=== PATIENT | female | born 1975 | race Two or more races ===

== ENCOUNTER 2016-07-22 14:40 | Emergency (ER) | payer MEDICAID ==
[~2016-07-22] VITALS: Ht 167.6 cm; Wt 69.3 kg
[~2016-07-22 14:40] MED LIST: IBUP800T PO
[2016-07-22 16:32] LABS: PATH.CAST-FLAG NOT PRESENT; SPERM-FLAG NOT PRESENT; SRC-FLAG NOT PRESENT; XTAL-FLAG NOT PRESENT; YLC-FLAG NOT PRESENT
[2016-07-22 17:22] VITALS: BP 112/64
== END 2016-07-22 17:45 | disposition home or self-care (01) ==
LOC: ED 16:46
DX: O03.4 Incomplete spontaneous abortion without complication (principal)
CPT/HCPCS: 36415; 76801; 81001; 84702; 87086; 87210; 87491; 87591; 87808; 99285

== ENCOUNTER 2016-07-26 09:32 | Emergency (ER) | payer MEDICAID ==
[~2016-07-26] VITALS: Ht 160 cm; Wt 70.0 kg
[2016-07-26] MEDS ORDERED: SODIUM CHLORIDE 0.9% 1,000ML IVBOLUS ONE (11:00)
[2016-07-26 11:13] LABS: BLOOD UREA NITROGEN 9 mg/dL (7-18)
[2016-07-26] MEDS ORDERED: ACETAMINOPHEN 325 MG TABLET PO ONE (11:30)
[2016-07-26] MEDS ORDERED: ONDANSETRON 2MG/ML, 2ML IVPush ONE (11:30)
[2016-07-26 11:31] LABS: ASPARTATE AMINO TRANSFERASE 19 U/L (15-37)
[2016-07-26] MEDS ORDERED: ACETAMINOPHEN 325 MG TABLET ONE (11:37)
[2016-07-26] MEDS ORDERED: ONDANSETRON 2MG/ML, 2ML ONE (11:37)
[2016-07-26 12:18] VITALS: BP 113/66
== END 2016-07-26 12:22 | disposition home or self-care (01) ==
LOC: ED 12:13
DX: O03.9 Complete or unspecified spontaneous abortion without complication (principal)
CPT/HCPCS: 36415; 76830; 80053; 81001; 84702; 85025; 96361; 96374; 99285; J2405; J7030

== ENCOUNTER 2016-08-17 19:00 | Emergency (ER) | payer MEDICAID ==
[~2016-08-17] VITALS: Ht 165.1 cm; Wt 72.9 kg
[2016-08-17 20:14] LABS: BLOOD UREA NITROGEN 15 mg/dL (7-18)
[2016-08-17] MEDS ORDERED: HYDROcodone/APAP 5/325 TABLET PO ONE (22:00)
[2016-08-17] MEDS ORDERED: ONDANSETRON ODT 4 MG PO ONE (22:00)
[2016-08-17] MEDS ORDERED: ONDANSETRON ODT 4 MG ONE (22:07)
[2016-08-17] MEDS ORDERED: HYDROcodone/APAP 5/325 TABLET ONE (22:07)
[2016-08-17 22:26] VITALS: BP 105/63
== END 2016-08-17 22:28 | disposition home or self-care (01) ==
LOC: ED 22:22
DX: N83.291 Other ovarian cyst, right side (principal)
CPT/HCPCS: 36415; 76830; 80048; 81003; 82040; 84703; 85025; 99285; Q0162